=== PATIENT | male | born 1955 | race Caucasian/White ===

== ENCOUNTER 2023-01-21 19:58 | Inpatient (IN) | payer MEDICARE ==
[~2023-01-21] VITALS: Ht 177.8 cm; Wt 52.4 kg
[2023-01-21 20:47] LABS: BASOPHILS 0.7 % (0-2); EOSINOPHILS 0.1 % (0-6); HEMATOCRIT 35.8 % (35.0-50.0); LYMPHOCYTES 3.3 % (24-44); MCHC 33.5 g/dl (30-36); MCV 86.5 fl (81-99); MONOCYTES 6.9 % (0-12); PLATELET COUNT 476 K/uL (140-440); RBC 4.14 M/ul (4.3-5.7); RDW 12.5 (10.5-15.0)
[2023-01-21 21:00] LABS: LACTIC ACID, BLOOD 3.6 mmol/L (0.4-2.0)
[2023-01-21 21:02] LABS: ALBUMIN 2.8 g/dL (3.4-5.0); ALBUMIN/GLOBULIN RATIO 0.42 (1.1-2.4); ANION GAP 12.6 (7-21); BILIRUBIN, TOTAL 0.7 ng/dL (0.2-1.0); BUN/CREATININE RATIO 8.88 (6.0-28.6); CALCIUM 9.1 mg/dL (8.5-10.1); CREATININE, SERUM 1.35 mg/dL (0.70-1.30); POTASSIUM 2.6 mmol/L (3.5-5.1); PROTEIN, TOTAL 9.4 g/dL (6.4-8.2)
[2023-01-21 21:09] LABS: INFLUENZA B NAA NEGATIVE (NEGATIVE); RESPIRATORY SYNCYTIAL VIR NAA NEGATIVE (NEGATIVE)
[2023-01-21 22:42] LABS: BILIRUBIN, URINE NEGATIVE (negative); BLOOD/HGB, URINE MODERATE (Negative); KETONE, URINE TRACE (Negative); LEUK ESTERASE, URINE NEGATIVE (negative); NITRITE, URINE NEGATIVE (negative)
[2023-01-21 22:47] LABS: AMPHETAMINES, UR NEGATIVE (NEGATIVE); BARBITURATES, UR NEGATIVE (NEGATIVE); BENZODIAZEPINES, UR NEGATIVE (NEGATIVE); BUPRENORPHINE,UR NEGATIVE (NEGATIVE); COCAINE, UR NEGATIVE (NEGATIVE); MARIJUANA (THC), UR NEGATIVE (NEGATIVE); MDMA, UR NEGATIVE (NEGATIVE); METHADONE, UR NEGATIVE (NEGATIVE); METHAMPHETAMINE, UR NEGATIVE (NEGATIVE); OPIATES, UR NEGATIVE (NEGATIVE); OXYCODONE, UR NEGATIVE (NEGATIVE); PHENCYCLIDINE, UR NEGATIVE (NEGATIVE); TRICYCLIC ANTIDEPRESSANT, UR NEGATIVE (NEGATIVE)
[2023-01-21 22:49] LABS: EPITHELIAL CELLS, URINE SQUAMOUS 1+ /lpf (0-1+); RED BLOOD CELLS, URINE 21-40 /hpf (0-5)
[2023-01-21 22:50] LABS: BACTERIA, URINE 1+ /hpf (negative); CASTS, URINE NONE SEEN \\lpf; CRYSTALS, URINE NONE SEEN (0-1+)
[2023-01-21 22:51] LABS: REFLEX CULTURE, URINE No (No)
[2023-01-22] VITALS (15 sets, daily range): BP systolic 88–177; BP diastolic 55–92
--- NOTE | 2023-01-22 01:30 | NUR ---
PT BEDSIDE BLOOD GLUCOSE BEDSIDE CHECK 450 AT THIS TIME.
--- NOTE | 2023-01-22 01:54 | NUR ---
CALLED, UPDATED ON PT'S BLOOD GLUCOSE CHECK AT BEDSIDE 450, NEW ORDERS.
--- NOTE | 2023-01-22 01:55 | NUR ---
PATIENT IS PLEASANT. ALERT AND ORIENTED TIMES 4. HE DOES NOT WANT TO REMOVE CLOTHING FOR SKIN ASSESSMENT. HE STATES THAT HE WOULD REALLY LIKE TO STAY IN ALL HIS CLOTHES. OTHERWISE NO SIGNS OF DISTRESS. ON 2 LITERS NC. AFEBRILE. SR.
--- NOTE | 2023-01-22 03:34 | NUR ---
PATIENT HAS HAD A SNACK. IS RESTING WITH NO COMPLAINTS AT THIS TIME.
--- NOTE | 2023-01-22 04:52 | NUR ---
patient desated to 70%. woke patient up and now patient is ating 100% on 2l oxygen.
[2023-01-22 05:33] LABS: HEMATOCRIT 31.2 % (35.0-50.0); HEMOGLOBIN 10.7 g/dL (12.0-18.0); LYMPHOCYTES 3.2 % (24-44); MCH 29.4 (27-36); MCHC 34.2 g/dl (30-36); MCV 85.8 fl (81-99); MONOCYTES 1.9 % (0-12); NEUTROPHILS 94.9 % (39-80); PLATELET COUNT 391 K/uL (140-440); RBC 3.63 M/ul (4.3-5.7); RDW 12.8 (10.5-15.0)
[2023-01-22 05:51] LABS: ALBUMIN 2.1 g/dL (3.4-5.0); ALBUMIN/GLOBULIN RATIO 0.36 (1.1-2.4); ANION GAP 8.5 (7-21); BILIRUBIN, TOTAL 0.4 ng/dL (0.2-1.0); BUN/CREATININE RATIO 12.06 (6.0-28.6); CALCIUM 8.3 mg/dL (8.5-10.1); CREATININE, SERUM 1.16 mg/dL (0.70-1.30); MAGNESIUM 1.7 mg/dL (1.8-2.4); POTASSIUM 2.5 mmol/L (3.5-5.1); PROTEIN, TOTAL 7.9 g/dL (6.4-8.2)
--- NOTE | 2023-01-22 06:53 | NUR ---
PATIENT K WAS 2.5 REPLACED WITH 40 PER ORDER. MG 1.7 IS TO BE REPLACED WITH 2 G MG SULFATE. MRI SCREENING COMPLETE. PATIENT HAS BEEN NPO SINCE 2 AM.
--- NOTE | 2023-01-22 08:18 | NUR ---
REPORT REC'D FROM RN EMPLOYEE HEALTH AND PLAN OF CARE RESUMES. PATIENT IS LAYING IN BED IN NO ACUTE DISTRESS AND AWAKENS EASILY AFTER SAYING HIS NAME A FEW TIMES. DR. VIGIL IN ROOM TO SEE PATIENT BRIEFLY AND GIVES AN ORDER FOR 15 UNITS OF INSULIN THIS AM DUE TO CBG OF 413. PT DENIES BEING DIABETIC, BUT STATES HE HAS BEEN TOLD HE IS DIABETIC. IV POTASSIUM AND IV MAG BEING REPLACED. PT IS ON 2 L NC AND DENIES ANY SOB. SP02 IS 100% AND OXYGEN TO BE TITRATED DOWN TOLERATED. PT NOTED TO BE VERY DIRTY, AND STILL WEARING HIS JEANS. PT TO GO DOWN FOR MRI AROUND 1000 THIS AM. PT REPORTS HE HAS NEVER BEEN HOSPITALIZED BEFORE. AM MEDS GIVEN PER EMAR. PLAN OF CARE DISCUSSED. NO FURTHER QUESTIONS AT THIS TIME PER PATIENT. WILL CONTINUE TO MONITOR. WARM BLANKET PROVIDED AND CALL LIGHT WITHIN REACH.
--- NOTE | 2023-01-22 09:53 | NUR ---
MRI HERE TO GET PATIENT. PT'S PANTS TAKEN OFF AND PATIENT STATES, "I FORGOT TO MENTION THIS, BUT EVERYTIME I FART, I'VE BEEN POOPING MY PANTS WELL." PATIENT'S PANTS WERE HEAVILY SOAKED WITH STOOL. [place] [facility] [place]. PT UNABLE TO VOID AT THIS TIME. ALL ELECTRODES AND PATCHES TAKEN OFF PATIENT FOR MRI. PT ABLE TO STAND WITH A ONE PERSON ASSIST. WHEN PT SITTING ON COMMODE, HE STATES, "I THINK I NEED ONE OF THESE AT HOME." WILL CONTINUE TO MONITOR. PATIENT DOES NOT NEED THIS RN TO ACCOMPANY PATIENT TO MRI PER DR. VIGIL.
--- NOTE | 2023-01-22 10:40 | NUR ---
PATIENT BACK TO FLOOR FROM MRI, SBA BACK INTO BED. BRIEF AND CLEAN GOWN ON. CALL LIGHT AND PERSONAL PHONE IN EASY REACH. NO OTHER NEEDS AT THIS TIME
--- NOTE | 2023-01-22 12:00 | NUR ---
PT IS SITTING UP IN BED WITH A VISITOR AT BEDSIDE. PT BLOOD GLUCOSE READING WAS 275. PT IS HUNGRY AND VITAL SIGNS WERE TAKEN. PT REMAINS ON RA AFTER BEING TAKEN OFF OF OXYGEN, AND STAYING WNL. WILL CONTINUE TO MONITOR.
--- NOTE | 2023-01-22 12:55 | NUR ---
SPOKE TO PATIENT ABOUT THE DISCHARGE PLAN. PATIENT DOES NOT WANT SNIF OR ALT. PATIENT JUST RETIRED AFTER 40 YEARS. PATIENT TAKES CARE OF HIM SELF PER PATIENT. PATIENT IS UNKEPT AND DIRTY. PATIENT STILL DRIVES HIS CAR. PATIENT ENCOURAGED TO GET A WALKER. PATIENT STATES HE USES A CANE. PATIENT STATES HE DOES NOT NEED HELP FROM CASE MANAGEMENT.
--- NOTE | 2023-01-22 13:47 | NUR ---
MED REC COMPLETE
--- NOTE | 2023-01-22 14:21 | NUR ---
PATIENT GAVE THIS ELECTRICAL PANEL BUILDER PERMISSION TO THROW HIS DIRTY JEANS AWAY, PATIENTS FRIEND WILL BE BRINGING NEW ONES IN FOR HIM.
--- NOTE | 2023-01-22 14:45 | NUR ---
PATIENT DENIES NEED TO URINATE. RN NOTIFIED. PATIENT REPOSITIONED IN BED.
--- NOTE | 2023-01-22 15:44 | NUR ---
BLADDERSCANNED PATIENT AND FOUND 1060ML URINE IN BLADDER. PATIENT STATES HE'S "BEVERLY" FEELING THE URGE TO URINATE. SBA TO BR FOR 700ML VOID IN URINAL. BEDBATH PROVIDED. HAIR AND COTA WASHED WELL. WARM BLNKET PROVIDED. CALL LIGHT IN EASY REACH
--- NOTE | 2023-01-22 18:22 | NUR ---
PATIENT TO MED SURG VIA CHAIR. PATIENT ATE 100% OF HIS DINNER. PATIENT DENIES PAIN, NAUSEA, OR ANY NEEDS AFTER ARRIVING TO ROOM 122. IV UNASYN IS INFUSING, IVF TO CONTINUE AFTER THIS. VITALS ARE STABLE.
--- NOTE | 2023-01-22 19:41 | NUR ---
PT SITTING UP IN BED TALKING ON THE PHONE. CALL LIGHT WITHIN REACH. SAFETY PRECAUTIONS IN PLACE. NO NEEDS EXPRESSED AT THIS TIME.
[2023-01-23 02:11] VITALS: BP 146/68
--- NOTE | 2023-01-23 02:13 | NUR ---
PATIENT VITALS DOCUMENTED. PT. IN BED RESTING. NO OTHER NEEDS AT THIS TIME. CALL LIGHT LEFT WITHIN REACH.
[2023-01-23 05:20] VITALS: BP 94/58
--- NOTE | 2023-01-23 05:24 | NUR ---
PT. ASSISTED TO BATHROOM. PT. HAD BM AND VOIDED THESE WERE DOCUMENTED. ROOM TIDIED, FRESH BEDDING PROVIDED, TRASH CANS EMPTIED, WARM BLANKET PROVIDED, FRESH ICE WATER REPLACED. CALL LIGHT LEFT WITHIN REACH. NO OTHER NEEDS AT THIS TIME.
[2023-01-23 05:58] LABS: BASOPHILS 0.3 % (0-2); EOSINOPHILS 0.2 % (0-6); HEMATOCRIT 31.3 % (35.0-50.0); HEMOGLOBIN 10.7 g/dL (12.0-18.0); MCH 29.6 (27-36); MCHC 34.1 g/dl (30-36); MCV 86.6 fl (81-99); MONOCYTES 4.7 % (0-12); NEUTROPHILS 86.8 % (39-80); PLATELET COUNT 362 K/uL (140-440); RBC 3.61 M/ul (4.3-5.7); RDW 12.8 (10.5-15.0)
[2023-01-23 06:13] LABS: ANION GAP 9.2 (7-21); BUN/CREATININE RATIO 22.53 (6.0-28.6); CALCIUM 8.5 mg/dL (8.5-10.1); CREATININE, SERUM 0.71 mg/dL (0.70-1.30); POTASSIUM 3.2 mmol/L (3.5-5.1)
--- NOTE | 2023-01-23 07:03 | NUR ---
REPORT RECEIVED FROM BETSY MONROY. PT RESTING IN BED ON LEFT SIDE WITH EYES CLOSED. RR EVEN AND UNLABORED. NO NEEDS IDENTIFIED AT THIS TIME. CALL LIGHT IN REACH.
--- NOTE | 2023-01-23 08:02 | EKG ---
[facility] [address] [place] [address] Signed Sinus tachycardia with occasional premature ventricular complexes Rightward axis Borderline ECG No previous ECGs available Confirmed by TUSHAR VIGIL MD ([id number]) on 01/23/2023 8:02:33 AM Electronically Signed By: TUSHAR VIGIL 01/23/23 0802 PATIENT NAME: BRYN MARROQUIN Electrocardiogram DATE OF : 53 PHYSICIAN: TUSHAR VIGIL REPORT #: [id number] REPORT IS CONFIDENTIAL AND NOT TO BE RELEASED WITHOUT AUTHORIZATION
--- NOTE | 2023-01-23 08:16 | NUR ---
IN TO ADMINISTER MEDICAITON, SEE MAR. IV SITES WNL. ASSESSMENT COMPLETE. PT DENIES PAIN AT THIS TIME. PT REPORTS NUMBNESS AND TINGLING IN BILATERAL FEET. PT REPORTS IT IS NEW FOR HIS LEFT FOOT. PT STATES "IT FEELS LIKE I DON'T HAVE SHOES ON." FAINT PEDAL PULSES PALPABLE BILATERALLY. CMS INTACT. LUNG SOUNDS CLEAR. BOWEL TONES ACTIVE. PT DENIES ANY OTHER NEEDS AT THIS TIME. CALL LIGHT IN REACH.
[2023-01-23 09:37] VITALS: BP 135/67
--- NOTE | 2023-01-23 10:30 | NUR ---
PT SITTING IN CHAIR. ASKED ME TO GET SOMEONE TO MAKE IV PUMP STOP BEEPING. INFORMED BETSY AREVALO.
--- NOTE | 2023-01-23 10:45 | NUR ---
PATIENT HAD FINISHED BREAKFAST WHEN I WAS VISITING WITH HIM AT 0915. HE HAD A VISITOR. PATIENT STATED HE WAS STILL HUNGRY. I WAS ABLE TO GET HIM A HARD-BOILED EGG, SF JELLO, AND A STRING CHEESE FOR A SNACK, ALL LOW-CARB ITEMS. HE IS ON A 60 GM CONS CARB DIET. HE DIDN'T KNOW HE HAD DIABETES. I EXPLAINED THAT HIS DIET HERE IS 60 GM CARB PER MEAL. CARBS BREAK DOWN INTO BLOOD SUGAR AND TOO MANY CARBS CAN INCREASE HIS BLOOD SUGAR. AT HOME HE EATS BREAKFAST, THAN SNACKS MID-DAY, THEN EATS DINNER. HE LIKES TOP RAMEN FOR LUNCH, OR 1/2 BOX OF MAC & CHEESE. HE LIKES FRUITS AND VEGGIES BUT DOESN'T ALWAYS HAVE THEM IN HIS HOUSE. I TOLD HIM I WOULD BRING A DIABETES SNACK LIST FOR HEALTHY SNACK IDEAS WELL SOME INFO ON CARBOHYDRATES. I BROUGHT HIM THE CARB COUNTING FOR PEOPLE WITH DIABETES HANDOUT FROM THE [facility], ALONG WITH A DIABETES PLATE PIC. PT WAS IN THE ROOM SO I PUT THESE HANDOUTS IN HIS GREEN BAG. WILL TRY TO FOLLOW UP WITH MORE DIET EDUCATION BEFORE HE DISCHARGES. WAS IN THE ROOM SO I PUT THESE HANDOUTS IN HIS
--- NOTE | 2023-01-23 11:06 | NUR ---
PT CALL LIGHT ON. PT REQUESTS TO GET BACK TO BED. STAND BY ASSIST BACK TO BED. PT ADVISED TOGET UP FOR LUNCH AND NOT EAT IN BED. PT VERBALIZES UNDERSTANDING. PT REPORTS HE WOULD LIKE TO GO HOME TODAY AND IS WAITING FOR THE DOCTORS RECCOMENDATION. PTS PRIMARY RN UPDATED. NO ADDITIONAL REQUESTS OR COMPLAINTS. CALL LIGHT WITHIN REACH. BED RAILS UP.
--- NOTE | 2023-01-23 11:10 | NUR ---
IN BED ALARM ALARMING, RESOLVED. PT MOVING AROUND IN BED. PT DENIES ANY NEEDS AT THIS TIME. CALL LIGHT IN REACH. BED ALARM ON.
--- NOTE | 2023-01-23 11:30 | NUR ---
Spoke with Ladarius. Reviewed needs with pt. Pt in need of pcp, walker, and HH. Pt states his freezer and cupboards are full, but he runs out of perishables frequently. He gets a food box monthly from the bread box in [place]. Pt wants to go home, he is waiting to speak with Dr. Celeste. He would like HH from [facility], PCP from the Physician clinic, and a walker from [facility] [place]. Let him know I will work on all of this. Dr. celeste signed Rx for the walker. He will enter a note for the other needs. Pt states he has a good friend, Jude, he will assist him as needed. He will also drive him.
--- NOTE | 2023-01-23 12:17 | NUR ---
IN TO ADMINISTER MEDICATIONS, SEE MAR. SBA WITH FWW FROM BED TO RECLINER FOR LUNCH. CHAIR ALARM ON. EDUCATION ON DM PROVIDED, VERBAL AND WRITTED. PT STATES "YOU DENA'S ARE SETTING ME UP A FULL BLOWN DIABETIC AND I DO NOT THINK I AM. I THINK MY PROBLEM IS, IS I LOST ALL THIS WEIGHT AND NOW I'M TRYING TO GAIN IT BACK." LUNCH TRAY ARRIVES. WATER PROVIDED. PT DENIES ANY OTHER NEEDS AT THIS TIME. CALL LIGHT IN REACH.
--- NOTE | 2023-01-23 13:10 | NUR ---
THIS RN CALLED [facility] THE DIABETIC NUTRITION. PER [facility]CO, [facility] IS OUT FOR A WEEK. MAYCO WILL ATTEMPT TO SEE PT AGAIN LATER TODAY WHEN [facility]CO WENT IN TO SEE PT EARLIER PHYSICAL THERAPY WAS IN ROOM.
--- NOTE | 2023-01-23 13:28 | NUR ---
IN TO ANSWER CALL LIGHT. IV PUMP ALARMING, RESOLVED. PT REPORTING TOILETING NEEDS. SBA FROM RECLINER TO RESTROOM. PT INSTRUCTED TO PULL CORD ON WALL WHEN READY TO GO BACK TO BED. PT VERBALIZES UNDERSTANDING. ATTENDS PROVIDED. NEW GOWN PROVIDED.
--- NOTE | 2023-01-23 13:42 | NUR ---
IN TO ANSWER CALL LIGHT. UPON ENTERING ROOM PT SITTING UP ON EDGE OF BED. EDUCATED PT DEBT MANAGEMENT COUNSELOR LIGHT USE AND PULL CORD ON WALL AND THAT PT NEEDS TO CALL AND HAVE SOMEONE WITH PT WHEN PT GETS UP. PT STATES "I AM SORRY." PT VERBALIZES UNDERSTANDING. ASSISTED PT WITH GOWN. PT LAYING IN BED. PT STATES "I NEED TO GET SOME REST." PT DENIES ANY OTHER NEEDS AT THIS TIME. CALL LIGHT IN REACH. BED ALARM ON. PO MEDICAITON ADMINISTERED, SEE MAR. PT TAKES PO MEDICATION WITH NO ISSUES.
--- NOTE | 2023-01-23 13:55 | NUR ---
IN TO ANSWER CALL LIGHT. IV PUMP ALARMING, RESOLVED. PT DENIES ANY OTHER NEEDS AT THIS TIME. CALL LIGHT IN REACH. BED ALARM ON.
--- NOTE | 2023-01-23 14:10 | NUR ---
THIS RN AND DR. VIGIL IN ROOM. IV PUMP ALARMING, RESOLVED. DR. VIGIL DISCUSSING WITH PT ABOUT STAYING ANOTHER NIGHT. PT STATES "I WANT TO GO HOME." DR. VIGIL DISCUSSING BENEFITS OF STAYING AND RISKS OF LEAVING. PT CONTINUES TO STATE "I WANT TO GO HOME."
[2023-01-23 14:48] VITALS: BP 136/85
--- NOTE | 2023-01-23 15:07 | NUR ---
Chart faxed to [facility] for walker. Pt's named added to the [employer] list from the physician clinic for pcp and hospital chart faxed to [facility] for PCP to review. Chart printed and f2f completed. Will have Dr. Celeste sign for pt to receive HH. Pt stating concern as he has difficulty getting into and out of his home due to 4 steps. Texted Marcello from [facility]. He has a walker with him and will bring to the hospital for pt when he finishes in [place].
--- NOTE | 2023-01-23 15:09 | NUR ---
[facility] IS OUT OF TOWN THIS WEEK. I HAD MORE TIME TO TALK TO PATIENT ABOUT HIS DIET THIS AFTERNOON. I EXPLAINED THE FOODS THAT WILL RAISE HIS BLOOD SUGAR. I REMINDED HIM THAT IF HE EATS POTATOES OR CORN, HE DOESN'T NEED TO HAVE BREAD, RICE, OR NOODLES WITH IT. HE LIKES POT PIES AND ADDS CORN TO THE MEAL. I SUGGESTED HE ADD GREEN BEANS INSTEAD. HE DOES NOT DRINK SUGARY BEVERAGES. HE DRINKS WATER, ALMOND MILK, AND WATER WITH SUGAR-FREE FLAVORING. I SUGGESTED HE ONLY EAT 1 OR 2 FUN SIZE CANDY BARS A DAY AND NO OTHER SWEET TREATS ON THE SAME DAY. HE CAN EAT EGGS AND A HASHBROWN FOR BREAKFAST, BUT SHOULD STAY AWAY FROM PROCESSED MEATS SUCH CRAMER, SAUSAGE, SALAMI, HOT DOGS, ETC. I SHOWED HIM THE PICTURE OF THE DIABETES PLATE AND SUGGESTED HE PUT IT ON HIS FRIDGE WHEN HE GETS HOME. HE WAS OPEN TO THIS DISCUSSION BUT HE DEFINITELY WOULD BENEFIT FROM MORE NUTRITION REINFORCEMENT. MY NAME AND OFFICE NUMBER ARE PROVIDED.
--- NOTE | 2023-01-23 15:24 | NUR ---
PATIENT PHONE NUMBER [phone] FRIEND FREDDY NUMBER [phone]
--- NOTE | 2023-01-23 15:30 | NUR ---
Patient counseled extensively by this RN regarding risks of leaving AMA and benefits of continued treatment. Patient states "there is nothing you could do or say to change my mind about leaving right now". [employer] Specialist, attending MD, and primary RN notified of situation. Pharmacy dispenses one dose of ABX and written prescription for continued abx.
--- NOTE | 2023-01-23 15:50 | NUR ---
Notified by staff, pt is leaving AMA. Went to pts room and asked if he is interested in waiting for his walker. He states, "no". Friend Jude is here. [facility] for the walker. Jude states he will cover the cost. I texted Marcello and asked him to call Jude, with pts approval. Let pt know, I will send chart for HH, The [facility]ician clinic will be calling him with an appt, HH will also call him. Jude states concern for pts needs and pt and I discussed his need for assist getting in and out of his home. Also updated, pt could use rails in his bathroom as he only takes a tub bath and he is concerned about getting out of the tub. Jude states he has a ramp the pt can use for the stairs and he will help him with rails in the bathroom. Marcello arrived from [facility] and delivered the pts walker. Pt denies other needs.
[2023-01-23] MEDS ORDERED: AMOX TR-K CLV1 EAC1 PO (15:54)
--- NOTE | 2023-01-23 16:00 | NUR ---
PT LEAVING AMA. PHYSICIAN DISCUSSED WITH PT. PT EDUCATED ON RISKS OF LEAVING AMA. PT ENCOURAGED TO GO TO ER IF PT HAS WORSENING SYMPTOMS. PT EDUCATED TO HAVE FOLLOW-UP APPOINTMENT WITH A PCP. VERBAL AND WRITTEN EDUCATION PROVIDED ON DM CARE.
== END 2023-01-23 16:00 | disposition left against medical advice (07) | DRG 871 ==
LOC: ED 19:58 → CCU 23:33 → MS 01-22 18:30
PROVIDERS: Internal Medicine; ADMIT Internal Medicine; ATTEND Internal Medicine
DX: A41.9 Sepsis, unspecified organism (principal); J18.9 Pneumonia, unspecified organism; E87.1 Hypo-osmolality and hyponatremia; N17.9 Acute kidney failure, unspecified; Z68.1 Body mass index [BMI] 19.9 or less, adult; R64 Cachexia; K86.89 Other specified diseases of pancreas; Z66 Do not resuscitate; R91.1 Solitary pulmonary nodule; J98.4 Other disorders of lung; R79.1 Abnormal coagulation profile; E87.6 Hypokalemia; R29.6 Repeated falls; F10.90 Alcohol use, unspecified, uncomplicated; Z20.822 Contact with and (suspected) exposure to COVID-19; E11.65 Type 2 diabetes mellitus with hyperglycemia; E87.5 Hyperkalemia; Y90.9 Presence of alcohol in blood, level not specified; Z53.29 Procedure and treatment not carried out because of patient's decision for other reasons
CPT/HCPCS: 36415; 70450; 71045; 71260; 74177; 74183; 80048; 80053; 81001; 82010; 83036; 83605; 83735; 84484; 85025; 85379; 87040; 87502; 93005; 93010; 97161; 99285-25; A9270; A9577; G0480; J0295; J0696; J1650; J1815; J2930; J3411; J3475; J3480; J3490; J7030; J7060; J7121; Q9967; U0002